=== PATIENT | female | born 1960 | race Caucasian/White ===

== ENCOUNTER 2018-10-06 16:06 | Emergency (ER) | payer OTHER ==
--- NOTE | 2018-10-06 17:40 | EDPHY ---
H & P Time Seen by Provider: 10/06/18 16:59 HPI/ROS: CHIEF COMPLAINT: Left foot pain/spasm HISTORY OF PRESENT ILLNESS: Patient is a 58-year-old female who presents emergency department with pain in her left foot. The patient flew from [facility] yesterday. She took 2 flights. The patient states that she has started to developed left foot "cramping."Her symptoms, on suddenly. She feels as though her left foot cramps she noticed a small area of redness on the dorsal aspect over her 4th and 5th metatarsal. She also states that the veins become engorged. This last for only a short period time and then resolves. She has had no discoloration of the whole foot. She has had no numbness or tingling. She denies any calf pain or swelling. No previous clot. The patient does not take any hormone therapy. She does not smoke. REVIEW OF SYSTEMS: 10 systems were reveiwed and are negative with the exception of the elements mentioned in the history of present illness. Past Medical/Surgical History: Negative Past surgical history: Negative Social history: Patient does not smoke Smoking Status: Never smoked Physical Exam: 36.5, 155/87, 110, 20, 99% on room air GENERAL: Well-appearing, in no acute distress, alert. HEENT: Eyes normal to inspection. NECK: Normal RESPIRATORY: Clear to auscultation bilaterally, no rales, rhonchi or wheezing. CVS: Regular rate and rhythm, no rubs, murmurs, or gallops. ABDOMEN: Soft, nontender, nondistended, no organomegaly. BACK: Normal to inspection, no CVA tenderness. SKIN: Normal color, no rash, warm, dry. No pallor. EXTREMITIES: No pedal edema, no calf tenderness, no Homans sign or cords, no joint swelling. Patient's left foot appears symmetric with the right. There is no swelling or erythema. Normal PT and DP pulses. Brisk capillary refill. No petechiae or rash noted. Toenail English. NEURO/PSYCH: Alert and oriented, normal mood and affect, normal motor sensory exam. Constitutional: Initial Vital Signs Temperature (C) 36.5 C 10/06/18 16:17 Heart Rate 110 H 10/06/18 16:17 Respiratory Rate 20 10/06/18 16:17 Blood Pressure 155/87 H 03/09/19 16:17 O2 Sat (%) 99 10/06/18 16:17 O2 Delivery Mode Room Air Allergies/Adverse Reactions: Sulfa (Sulfonamide Antibiotics) Allergy (Verified 10/06/18 16:17) Home Medications: Medication Instructions Recorded NK [No Known Home Meds] 10/06/18 Medical Decision Making - Diagnostics Imaging Results: Imaging Impressions Extremity Venous Study 10/06/18 17:34 Impression: No evidence of deep vein thrombosis. Olga Lidia Jimenez is notified of these findings at 7:07 PM on 10/06/2018. ED Course/Re-evaluation: In the emergency department I discussed possible etiologies with the patient. I answered all her questions. Laboratory studies, x-ray and ultrasound were ordered. Patient's CBC and chemistry unremarkable. Foot x-ray: Negative I rechecked the patient. She states she has had numerous episodes of the similar symptoms while in the emergency department. I had her walk at the bedside and sit back down. I spent some time in the room but saw no abnormality while I was present. Patient describes intermittent small swelling of her foot and bulging veins. Patient states her toes pulled back towards her head. I thought that this could be secondary to a muscle spasm. The patient was given Flexeril 10 mg orally. Ultrasound: Please refer the dictated report. No abnormality. On recheck her foot appear normal. There is no objective findings of limited flow. I doubt arterial occlusion. I discussed the results with the patient. I answered all her questions. At this time I feel she can be safely discharged. She will be discharged with a prescription Flexeril bili she will follow up with primary care physician. She is given warnings prior to leaving. Differential Diagnosis: My differential includes but is not limited to DVT, arterial occlusion, muscle spasm, electrolyte abnormality, sugar abnormality - Data Points Laboratory Results: Laboratory Results 10/06/18 17:44 10/06/18 17:44 10/06/18 10/06/18 17:44 17:44 WBC 7.64 10^3/uL 10^3/uL (3.80-9.50) RBC 4.99 10^6/uL 10^6/uL (4.18-5.33) Hgb 14.2 g/dL g/dL (12.6-16.3) Hct 46.0 % % (38.0-47.0) MCV 92.2 fL fL (81.5-99.8) MCH 28.5 pg pg (27.9-34.1) MCHC 30.9 g/dL L g/dL (32.4-36.7) RDW 13.4 % % (11.5-15.2) Plt Count 261 10^3/uL 10^3/uL (150-400) MPV 11.0 fL fL (8.7-11.7) Neut % (Auto) 67.0 % % (39.3-74.2) Lymph % (Auto) 23.8 % % (15.0-45.0) [place] % (Auto) 6.0 % % (4.5-13.0) Eos % (Auto) 2.4 % % (0.6-7.6) Baso % (Auto) 0.5 % % (0.3-1.7) Nucleat RBC Rel Count 0.0 % % (0.0-0.2) Absolute Neuts (auto) 5.12 10^3/uL 10^3/uL (1.70-6.50) Absolute Lymphs (auto) 1.82 10^3/uL 10^3/uL (1.00-3.00) Absolute Monos (auto) 0.46 10^3/uL 10^3/uL (0.30-0.80) Absolute Eos (auto) 0.18 10^3/uL 10^3/uL (0.03-0.40) Absolute Basos (auto) 0.04 10^3/uL 10^3/uL (0.02-0.10) Absolute Nucleated RBC 0.00 10^3/uL 10^3/uL (0-0.01) Immature Gran % 0.3 % % (0.0-1.1) Immature Gran # 0.02 10^3/uL 10^3/uL (0.00-0.10) Sodium 138 mEq/L mEq/L (135-145) Potassium 4.3 mEq/L mEq/L (3.5-5.2) Chloride 104 mEq/L mEq/L (97-110) Carbon Dioxide 27 mEq/l mEq/l (22-31) Anion Gap 7 mEq/L mEq/L (6-14) BUN 16 mg/dL mg/dL (7-23) Creatinine 0.8 mg/dL mg/dL (0.6-1.0) Estimated GFR > 60 Glucose 104 mg/dL H mg/dL (70-100) Calcium 9.6 mg/dL mg/dL (8.5-10.4) Medications Given: Discontinued Medications Cyclobenzaprine HCl (Flexeril) 10 mg PO EDNOW ONE Stop: 10/06/18 19:02 Last Admin: 10/06/18 19:22 Dose: 10 mg Departure - Departure Disposition: Home, Routine, Self-Care Clinical Impression: Foot spasms Condition: Good Instructions: Swollen Joint (ED) Additional Instructions: Apply heating pad to your foot. You can use anti-inflammatory medicine. Take Flexeril every 6-[address] on Flexeril. Referrals: NONE *PRIMARY CARE P,. [Primary Care Provider] - As per Instructions
[2018-10-06 18:02] LABS: PLATELET COUNT 261 10^3/uL (150-400)
[2018-10-06] MEDS ORDERED: CYCLOBENZAPRINE 10 MG TAB PO ONE (19:01)
[2018-10-06] MEDS ORDERED: CYCLOBENZAPRINE 10MG PREPACK#3 BTL TAKEHOME ONE (20:06)
[2018-10-06 20:13] VITALS: BP 136/63
== END 2018-10-06 20:20 | disposition home or self-care (01) ==
DX: M79.672 Pain in left foot (principal); R25.2 Cramp and spasm